=== PATIENT | female | born 1930 | race Caucasian/White ===

== ENCOUNTER 2016-10-13 14:25 | Emergency (ER) | payer MEDICARE, OTHER ==
[~2016-10-13] VITALS: Ht 154.9 cm; Wt 59.9 kg
[~2016-10-13 14:25] MED LIST: ASPI81TA2 PO; CALC-20 PO; CARV3.12 PO; CYAN1TAB43 PO; EZET10TA PO; FURO-144 PO; LOSA25TA13 PO; OMEG1CAP PO; OMEG300C3 PO; POTA10CA43 PO; POTA20TA83 PO; SIMV10TA2 PO; SPIR25TA PO; VIT1CAPS9 PO; [UNRECOGNIZED DRUG - CODE] SL
--- NOTE | 2016-10-13 15:10 | NUR ---
PT BIB FAMILY FOR COUGH SINCE YESTERDAY AND WEAKNESS. PT AAOX3. NAD NOTED. KAYLEIGH. AT FOR EVAL. SAFETY AND COMFORT MEASURES PROVIDED. WILL MONITOR.
[2016-10-13 15:27] LABS: BASOPHILS % (AUTO) 0.5 % (0.0-2.0); EOSINOPHILS % (AUTO) 0.7 % (0.0-6.0); HEMATOCRIT 38 % (33-45); HEMOGLOBIN 12.8 g/dL (11.5-14.8); LYMPHOCYTES # (AUTO) 1.1 /CMM (0.8-4.8); LYMPHOCYTES % (AUTO) 17.7 % (20.0-44.0); MEAN CORPUSCULAR HEMOGLOBIN 33 PG (26.0-33.0); MEAN CORPUSCULAR HGB CONC 34 g/dl (31.0-36.0); MEAN CORPUSCULAR VOLUME 97 fL (82-100); MONOCYTES # (AUTO) 0.5 /CMM (0.1-1.30); MONOCYTES % (AUTO) 7.7 % (2.0-12.0); NEUTROPHILS # (AUTO) 4.6 /CMM (1.8-8.9); NEUTROPHILS % (AUTO) 73.4 % (43.0-81.0); PLATELET COUNT (AUTO) 110 /CMM (150-450); RDW COEFFICIENT OF VARIATION 12.1 (11.5-15.0); RED BLOOD CELL COUNT(AUTO) 3.95 MIL/uL (4.0-5.2); WHITE BLOOD COUNT (AUTO) 6.2 K/uL (4.3-11.0)
--- NOTE | 2016-10-13 15:30 | NUR ---
IV ACCESS STARTED. BLOOD DRAWN FOR LABS, SENT.
[2016-10-13 15:38] LABS: CALCIUM, SERUM 9.3 mg/dL (8.5-10.1); CARBON DIOXIDE 31 mmol/L (21-32); CHLORIDE 106 mmol/L (98-107); CREATININE 0.7 mg/dL (0.6-1.3); GLUCOSE 94 mg/dL (74-106); POTASSIUM 4.6 mmol/L (3.5-5.1); SODIUM SERUM 140 mmol/L (136-145); UREA NITROGEN, BLOOD 12 mg/dL (7-18)
[2016-10-13 15:43] LABS: INR 2.39 (0.87-1.13)
[2016-10-13 15:46] LABS: TROPONIN I < 0.017 ng/mL (0.00-0.056)
[2016-10-13 15:51] LABS: B-TYPE NATRIURETIC PEPTIDE 832 PG/ML (0-125)
--- NOTE | 2016-10-13 16:30 | NUR ---
XRAY DONE AT BS.
--- NOTE | 2016-10-13 17:23 | NUR ---
IV removed. Catheter intact and site benign. Pressure and 4x4 applied to site. No bleeding noted.
--- NOTE | 2016-10-13 17:23 | NUR ---
Patient discharged to home in stable condition. Written and verbal after care instructions given. Patient verbalizes understanding of instruction. Pt ambulatory with a steady gait.
[2016-10-13 17:25] VITALS: BP 149/81
== END 2016-10-13 17:25 | disposition home or self-care (01) ==
LOC: ER 14:27
DX: R05 Cough (principal); R09.89 Other specified symptoms and signs involving the circulatory and respiratory systems; M19.90 Unspecified osteoarthritis, unspecified site; Z88.6 Allergy status to analgesic agent
CPT/HCPCS: 36415; 71010; 80048; 83880; 84484; 85025; 85730; 87804; 93005; 99285; A4606 ×2; 87400; Z7610

== ENCOUNTER 2017-07-16 12:57 | Inpatient (IN) | payer MEDICARE, OTHER ==
[~2017-07-16] VITALS: Ht 160 cm; Wt 56.5 kg
[~2017-07-16 12:57] MED LIST changes: +ASPI-1169 PO; -ASPI81TA2 PO; -EZET10TA PO; +EZET10TA14 PO
--- NOTE | 2017-07-16 13:10 | NUR ---
BB DAUGHTER FOR COUGH X SATURDAY, "CHEST HURTS WHEN COUGHING". PATIENT IS A/OX 4. BREATHING EVEN AND UNLABORED. NO SOB. VITALS STABLE. SAFETY AND COMFORT MEASURES IN PLACE. AWAITING MD ORDERS.
[2017-07-16 13:36] LABS: BASOPHILS % (AUTO) 0.4 % (0.0-2.0); EOSINOPHILS % (AUTO) 0.1 % (0.0-6.0); HEMATOCRIT 36 % (33-45); HEMOGLOBIN 12.4 g/dL (11.5-14.8); LYMPHOCYTES # (AUTO) 0.8 /CMM (0.8-4.8); LYMPHOCYTES % (AUTO) 14.5 % (20.0-44.0); MEAN CORPUSCULAR HEMOGLOBIN 32 PG (26.0-33.0); MEAN CORPUSCULAR HGB CONC 34 g/dl (31.0-36.0); MEAN CORPUSCULAR VOLUME 95 fL (82-100); MONOCYTES % (AUTO) 17.1 % (2.0-12.0); NEUTROPHILS # (AUTO) 3.9 /CMM (1.8-8.9); NEUTROPHILS % (AUTO) 67.9 % (43.0-81.0); PLATELET COUNT (AUTO) 116 /CMM (150-450); RDW COEFFICIENT OF VARIATION 13.7 (11.5-15.0); RED BLOOD CELL COUNT(AUTO) 3.82 MIL/uL (4.0-5.2); WHITE BLOOD COUNT (AUTO) 5.7 K/uL (4.3-11.0)
[2017-07-16 13:49] LABS: CALCIUM, SERUM 9.4 mg/dL (8.5-10.1); CARBON DIOXIDE 31 mmol/L (21-32); CHLORIDE 103 mmol/L (98-107); CREATININE 0.8 mg/dL (0.6-1.3); GLUCOSE 106 mg/dL (74-106); POTASSIUM 4.2 mmol/L (3.5-5.1); SODIUM SERUM 139 mmol/L (136-145); UREA NITROGEN, BLOOD 16 mg/dL (7-18)
[2017-07-16 13:57] LABS: TROPONIN I < 0.017 ng/mL (0.00-0.056)
--- NOTE | 2017-07-16 14:19 | NUR ---
CALLED RT FOR BREATHING TREATMENT
[2017-07-16] MEDS ORDERED: methylPREDNISolone SOD SUCC 125 MG/2ML VIAL ONE (14:24)
[2017-07-16] MEDS ORDERED: IPRATROPIUM NEB FS 0.5 MG/2.5 ML AMPUL.NEB NEB ONE ×2 (14:30→15:30)
[2017-07-16] MEDS ORDERED: methylPREDNISolone SOD SUCC 125 MG/2ML VIAL IV ONE (14:30)
[2017-07-16] MEDS ORDERED: ALBUTEROL FS 2.5 MG/3 ML VIAL.NEB NEB ONE ×2 (14:30→15:30)
--- NOTE | 2017-07-16 14:30 | NUR ---
NEW IV STARTED ON RFA, 20 G. PATIENT MEDICATED PER MD ORDERS.
[2017-07-16] MEDS ORDERED: ALBUTEROL FS 2.5 MG/3 ML VIAL.NEB ONE ×2 (14:39→15:38)
[2017-07-16] MEDS ORDERED: IPRATROPIUM NEB FS 0.5 MG/2.5 ML AMPUL.NEB ONE ×2 (14:39→15:38)
[2017-07-16 14:46] LABS: ALBUMIN 3.3 g/dL (3.4-5.0); BILIRUBIN,DIRECT 0.1 mg/dL (0.0-0.2); BILIRUBIN,TOTAL 0.3 mg/dL (0.2-1.0); TOTAL PROTEIN, SERUM 7.1 g/dL (6.4-8.2)
[2017-07-16] MEDS ORDERED: ATOR40TA PO (15:43)
[2017-07-16] MEDS ORDERED: CARV25TA2 PO (15:43)
[2017-07-16] MEDS ORDERED: CYAN10009 PO (15:43)
[2017-07-16] MEDS ORDERED: OMEG1CAP46 PO (15:43)
[2017-07-16] MEDS ORDERED: WARF5TAB6 PO (15:43)
[2017-07-16] MEDS ORDERED: LOSA100T15 PO (15:43)
[2017-07-16] MEDS ORDERED: VIT1CAPS9 PO (15:43)
[2017-07-16] MEDS ORDERED: FOLI0.4T2 PO (15:43)
[2017-07-16] MEDS ORDERED: FURO20TA4 PO (15:43)
[2017-07-16] MEDS ORDERED: OSELTAMIVIR PHOSPHATE 75 MG CAPSULE ONE (15:57)
[2017-07-16] MEDS ORDERED: OSELTAMIVIR PHOSPHATE 75 MG CAPSULE PO ONE (16:00)
--- NOTE | 2017-07-16 16:11 | NUR ---
EPIC PAGED, PURIFICATION DIRECTOR
--- NOTE | 2017-07-16 16:13 | NUR ---
CALLED NURSING SUP. FOR MS BED
--- NOTE | 2017-07-16 16:39 | NUR ---
[facility] REPAGED
--- NOTE | 2017-07-16 16:48 | NUR ---
MS 329 AT 6PM
--- NOTE | 2017-07-16 17:01 | NUR ---
REPORT GIVEN TO RNJAYESH FOR SIMIN UPON ADMISSION. BED NOT AVAILABLE YET, WILL MOVE PATIENT ONCE ROOM OPENS UP.
[2017-07-16] MEDS ORDERED: IV NS 0.9% 1,000 ML IV PRN ×2 (17:21→18:15)
[2017-07-16] MEDS ORDERED: LEVOFLOXACIN 500 MG /D5W 100ML 500 MG in PREMIX 1 EA IV SCH (17:30)
[2017-07-16] MEDS ORDERED: WARFARIN SODIUM 5 MG TABLET PO SCH ×2 (17:30)
[2017-07-16] MEDS ORDERED: ONDANSETRON HCL/PF 4 MG/2 ML VIAL IVP PRN ×2 (17:30→18:15)
[2017-07-16] MEDS ORDERED: HYDROCODONE/APAP 5/325MG 1 EACH TABLET PO PRN ×2 (17:30→18:15)
[2017-07-16] MEDS ORDERED: ZOLPIDEM TARTRATE 5 MG TABLET PO PRN ×2 (17:30→18:15)
[2017-07-16] MEDS ORDERED: MAGNESIUM HYDROXIDE 30 ML UDC PO PRN ×2 (17:30→18:15)
[2017-07-16] MEDS ORDERED: ACETAMINOPHEN 325 MG TABLET PO PRN ×2 (17:30→18:15)
[2017-07-16] MEDS ORDERED: Z GUARD REMEDY 2 OZ OINT TP PRN ×2 (17:30→18:15)
[2017-07-16] MEDS ORDERED: GUAIFENESIN/D-METHORPHAN HB 5 ML UDC PO PRN ×2 (17:30→18:15)
[2017-07-16] MEDS ORDERED: ENOXAPARIN SODIUM 40 MG/0.4 ML DISP.SYRIN SQ SCH (17:30)
[2017-07-16] MEDS ORDERED: MAG HYDROX/AL HYDROX/SIMETH 30 ML UDC PO PRN ×2 (17:30→18:15)
--- NOTE | 2017-07-16 18:15 | NUR ---
PATIENT TRANSPORTED TO [facility] VIA STRETCHER WITH EMT. RN, JAYESH TO PROVIDE SIMIN.
[2017-07-16] MEDS ORDERED: ALBUTEROL FS 2.5 MG/3 ML VIAL.NEB NEB SCH (19:30)
--- NOTE | 2017-07-16 19:30 | NUR ---
MS RN NOTE RECEIVED PATIENT AWAKE ALERT AND ORIENTED X3. NO SOB AT THIS TIME. PATIENT DENIES ANY PAIN OR DISCOMFORT. IV SITE INTACT, WITH FLUIDS RUNNING ORDERED. SKIN CHECKED. NO BREAKDOWN OR BRUISING NOTED. ORIENTED PATIENT TO ROOM AND TO UNIT. ALL BELONGINGS CHECKED AND ACCOUNTED FOR. BED LOCKED AND IN LOWEST POSITION. SIDE RAILS UP, CALL LIGHT WITHIN REACH. WILL CONTINUE TO MONITOR.
[2017-07-16 20:00] VITALS: BP 157/63
[2017-07-16] MEDS: ENOXAPARIN SODIUM 40 MG/0.4 ML DISP.SYRIN SQ SCH ×2 (20:00→21:00)
[2017-07-16] MEDS ORDERED: LEVOFLOXACIN 500 MG /D5W 100ML 500 MG in PREMIX 1 EA IV ONE (20:00)
[2017-07-16] MEDS: ALBUTEROL FS 2.5 MG/3 ML VIAL.NEB NEB SCH (20:10)
[2017-07-16] MEDS ORDERED: ATORVASTATIN 40 MG TABLET PO SCH (22:00)
[2017-07-16] MEDS: ATORVASTATIN 40 MG TABLET PO SCH (22:00)
--- NOTE | 2017-07-16 22:00 | NUR ---
MS RN NOTE HELD LOVENOX. LOW PLATELETS.
--- NOTE | 2017-07-17 07:34 | NUR ---
RN OPENING NOTES RECEIVED PATIENT IN BED RESTING, RESPONSIVE. A/OX4. NO ACUTE DISTRESS, NO SOB NOTED. NO S/S OF PAIN OR DISCOMFORT. IV SITE INTACT AND PATENT. KEPT PATIENT SAFE AND COMFORTABLE. BED IN LOCKED, LOW POSITION, SIDERAILS UP X2, CALL LIGHT IN REACH. WILL CONTINUE TO MONITOR ACCORDINGLY.
[2017-07-17 08:00] VITALS: BP 149/71
[2017-07-17] MEDS ORDERED: ASPIRIN 81 MG TAB.CHEW PO SCH (09:00)
[2017-07-17] MEDS ORDERED: OSELTAMIVIR PHOSPHATE 75 MG CAPSULE PO SCH (09:00)
[2017-07-17] MEDS ORDERED: FUROSEMIDE 20 MG TABLET PO SCH (09:00)
[2017-07-17] MEDS ORDERED: SPIRONOLACTONE 25 MG TABLET PO SCH (09:00)
[2017-07-17] MEDS: ASPIRIN 81 MG TAB.CHEW PO SCH (09:11)
[2017-07-17] MEDS: SPIRONOLACTONE 25 MG TABLET PO SCH (09:12)
[2017-07-17] MEDS: OSELTAMIVIR PHOSPHATE 75 MG CAPSULE PO SCH ×2 (09:12→16:47)
[2017-07-17] MEDS: FUROSEMIDE 20 MG TABLET PO SCH (09:12)
[2017-07-17] MEDS: ALBUTEROL FS 2.5 MG/3 ML VIAL.NEB NEB SCH ×4 (09:12→20:12)
[2017-07-17] MEDS: FOLIC ACID 1 MG TABLET PO SCH (10:08)
[2017-07-17] MEDS: LOSARTAN POTASSIUM 50 MG TABLET PO SCH (10:09)
[2017-07-17] MEDS: CARVEDILOL 12.5 MG TABLET PO SCH ×2 (10:10→21:15)
[2017-07-17 13:52] LABS: INR 3.35 (0.87-1.13); PROTHROMBIN TIME 35.3 SECS (9.5-12.7)
[2017-07-17 16:00] VITALS: BP 147/70
--- NOTE | 2017-07-17 16:00 | NUR ---
RN NOTES DR PARIKH AT BEDSIDE TALKING TO PATIENT AND FAMILY. RECEIVED ORDER TO DECREASE THE IVF RATE TO 50ML/HR.
[2017-07-17] MEDS: WARFARIN SODIUM 5 MG TABLET PO SCH (16:50)
--- NOTE | 2017-07-17 19:16 | NUR ---
RN CLOSING NOTES PATIENT RESTING IN BED. NO SIGNIFICANT CHANGE IN PATIENT'S CONDITION. NO ACUTE DISTRESS, NO SOB NOTED. NO S/S OF PAIN OR DISCOMFORT. ALL NEEDS ATTENDED AND PROVIDED. BED IN LOW, LOCKED POSITION, HOB ELEVATED, SIDERAILS UPX2, CALL LIGHT WITHIN REACH. ENDORSED TO BULB ASSEMBLER RN FOR SIMIN.
--- NOTE | 2017-07-17 19:30 | NUR ---
RN NOTES RECEIVED PT. AWAKE ON BED. A/OX4, IV FLUID NS RUNNING @ 50ML/HR, DENIES PAIN, NO SOB, CALL LIGHT WITHIN REACH, SIDERAILSUPX2 CONTINUE TO MONITOR
[2017-07-17 20:00] VITALS: BP_SYST 119; BP_SYST 120; BP_DIAS 56; BP_DIAS 60
[2017-07-17] MEDS: ATORVASTATIN 40 MG TABLET PO SCH (21:14)
--- NOTE | 2017-07-18 06:51 | NUR ---
RN NOTES AWAKE, DENIES PAIN, NO SOB, IV LINE PATENT , NO REDNESS OR SWOLLEN, CALL LIGHT WITHIN REACH, MORNING CARE RENDERED, SIDERAILSUPX2 PT. NEEDS ATTENDED
--- NOTE | 2017-07-18 07:30 | NUR ---
MS/RN OPENING NOTE PATIENT RECEIVED IN BED AWAKE. ALERT AND ORIENTED X3. OXYGEN DELIVERING AT 2L/MIN VIA NC. RESPIRATION REGULAR AND UNLABORED. DENIES SOB, DENIES PAIN AT THIS TIME. IN NO APPARENT DISTRESS. RFA g20 PATENT AND IV INFUSING WITH NO S/SX INFILTRATION. BED LOCKED AND LOW. SIDE RAIL X2 UP. CALL LIGHT WITHIN REACH. WILL CONTINUE TO MONITOR.
[2017-07-18 08:00] VITALS: BP 143/66
[2017-07-18] MEDS: FOLIC ACID 1 MG TABLET PO SCH (08:22)
[2017-07-18] MEDS: ASPIRIN 81 MG TAB.CHEW PO SCH (08:22)
[2017-07-18] MEDS: FUROSEMIDE 20 MG TABLET PO SCH (08:23)
[2017-07-18] MEDS: SPIRONOLACTONE 25 MG TABLET PO SCH (08:23)
[2017-07-18] MEDS: OSELTAMIVIR PHOSPHATE 75 MG CAPSULE PO SCH ×2 (08:23→17:25)
[2017-07-18] MEDS: LOSARTAN POTASSIUM 50 MG TABLET PO SCH (08:24)
[2017-07-18] MEDS: CARVEDILOL 12.5 MG TABLET PO SCH (08:24)
[2017-07-18] MEDS: ALBUTEROL FS 2.5 MG/3 ML VIAL.NEB NEB SCH ×3 (08:34→15:00)
[2017-07-18 08:40] LABS: BASOPHILS % (AUTO) 0.3 % (0.0-2.0); HEMATOCRIT 34 % (33-45); HEMOGLOBIN 11.6 g/dL (11.5-14.8); LYMPHOCYTES # (AUTO) 1.1 /CMM (0.8-4.8); LYMPHOCYTES % (AUTO) 22.9 % (20.0-44.0); MEAN CORPUSCULAR HEMOGLOBIN 33 PG (26.0-33.0); MEAN CORPUSCULAR HGB CONC 34 g/dl (31.0-36.0); MEAN CORPUSCULAR VOLUME 97 fL (82-100); MONOCYTES # (AUTO) 0.5 /CMM (0.1-1.30); MONOCYTES % (AUTO) 10.5 % (2.0-12.0); NEUTROPHILS # (AUTO) 3.2 /CMM (1.8-8.9); NEUTROPHILS % (AUTO) 66.3 % (43.0-81.0); PLATELET COUNT (AUTO) 98 /CMM (150-450); RDW COEFFICIENT OF VARIATION 14.6 (11.5-15.0); RED BLOOD CELL COUNT(AUTO) 3.51 MIL/uL (4.0-5.2); WHITE BLOOD COUNT (AUTO) 4.9 K/uL (4.3-11.0)
--- NOTE | 2017-07-18 08:53 | NUR ---
MS/RN MEDS GIVEN MORNING DUE MEDICATIONS GIVEN ORDERED. NO ASE NOTED.
[2017-07-18 08:56] LABS: CALCIUM, SERUM 8.3 mg/dL (8.5-10.1); CARBON DIOXIDE 27 mmol/L (21-32); CHLORIDE 108 mmol/L (98-107); CREATININE 0.7 mg/dL (0.6-1.3); GLUCOSE 92 mg/dL (74-106); PHOSPHORUS 2.8 mg/dL (2.5-4.9); POTASSIUM 3.9 mmol/L (3.5-5.1); SODIUM SERUM 141 mmol/L (136-145); UREA NITROGEN, BLOOD 15 mg/dL (7-18)
[2017-07-18] MEDS ORDERED: OSEL75CA PO (12:51)
[2017-07-18 16:00] VITALS: BP 129/69
[2017-07-18] MEDS: WARFARIN SODIUM 5 MG TABLET PO SCH (17:27)
[2017-07-20] MEDS ORDERED: WARFARIN SODIUM 2.5 MG TABLET PO SCH (17:00)
== END 2017-07-18 18:00 | disposition home or self-care (01) | DRG 194 ==
LOC: ER 12:59 → MED 19:26
PROVIDERS: ADMIT Internal Medicine; ATTEND Internal Medicine
DX: J10.1 Influenza due to other identified influenza virus with other respiratory manifestations (principal); E44.1 Mild protein-calorie malnutrition; E78.5 Hyperlipidemia, unspecified; I70.0 Atherosclerosis of aorta; Z79.01 Long term (current) use of anticoagulants; K21.9 Gastro-esophageal reflux disease without esophagitis; Z79.82 Long term (current) use of aspirin; Z79.899 Other long term (current) drug therapy; Z95.2 Presence of prosthetic heart valve; Z88.5 Allergy status to narcotic agent; Z95.0 Presence of cardiac pacemaker; I10 Essential (primary) hypertension
CPT/HCPCS: 36415; 71010-TC; 80048-TC; 80076-TC; 83605-TC; 83735-TC; 84100-TC; 84484-TC; 85025-TC; 85610-TC; 87040-TC; 87081-TC; 87400; A4216; A4606; J1956; J2930; J7030; Z7610

== ENCOUNTER 2019-04-26 03:49 | Emergency (ER) | payer MEDICARE, MEDICAID ==
[~2019-04-26] VITALS: Ht 160 cm; Wt 64.0 kg
[~2019-04-26 03:49] MED LIST changes: +ATOR40TA PO; +CARV25TA2 PO; -CARV3.12 PO; +CYAN-51 PO; -CYAN1TAB43 PO; -EZET10TA14 PO; +FOLI0.4T2 PO; -FURO-144 PO; +FURO20TA4 PO; +LOSA100T31 PO; -LOSA25TA13 PO; -OMEG1CAP PO; +OMEG1CAP46 PO; -OMEG300C3 PO; +OSEL75CA PO; -POTA10CA43 PO; -POTA20TA83 PO; -SIMV10TA2 PO; +WARF-58 PO; -[UNRECOGNIZED DRUG - CODE] SL
--- NOTE | 2019-04-26 04:04 | NUR ---
BIB BY AMBULANCE FROM [facility]. PATIENT HAD FALL IN THE BATHROOM. PER PATIENT SHE SLIPPED AND LANDED ON HER L SIDE. INITIAL ASSESSMENT DONE. PUNCTURE WOUND AND CONTUSION NOTED ABOVE THE L EYE, BRUISING ON THE L LOWE LEG; AND DEFORMITY OF L HAND/FOREARM. ON PAIN 11/28. A/O X3, -N/V. CLEANED THE PATIENT, PUT ON HOSPITAL GOWN.
--- NOTE | 2019-04-26 04:06 | NUR ---
BUSINESS INTELLIGENCE ANALYST AT BEDSIDE FOR X-RAYS ORDERED.
--- NOTE | 2019-04-26 04:06 | NUR ---
RADIOLOGY AT BEDSIDE
--- NOTE | 2019-04-26 04:07 | NUR ---
TO CT ON JAMEEL
--- NOTE | 2019-04-26 04:07 | NUR ---
BROUGHT TO RADIOLOGY FOR CT SCAN ORDERED.
[2019-04-26] MEDS ORDERED: FENTANYL PF 100MCG/2ML AMPUL ONE (04:11)
--- NOTE | 2019-04-26 04:21 | NUR ---
BACK TO ER 10 FROM RADIOLOGY.
--- NOTE | 2019-04-26 04:25 | NUR ---
INSERTED PERIPHERAL IV LINE RFA G#20, GOOD BLOOD RETURN NOTED AFTER 1 ATTEMPT. CONVERTED INTO SL.
[2019-04-26] MEDS ORDERED: FENTANYL PF 100MCG/2ML AMPUL IV ONE (04:30)
[2019-04-26] MEDS ORDERED: TDAP [DIPH/PERTUSSIS/TET] 0.5 ML VIAL IM ONE ×2 (05:00→05:06)
--- NOTE | 2019-04-26 05:10 | NUR ---
MD AT BEDSIDE TO EXPLAIN TO PATIENT AND FAMILY THE POC.
--- NOTE | 2019-04-26 05:26 | NUR ---
CLOSE REDUCTION DONE BY DR. SCHULZ, WITH LOCAL ANETHESIA. APPLIED FIBERGLASS VOLAR SPLINT TO L HAND AND FOREARM. L FINGERS ENSURED SENSATION AND CIRCULATION. PATIENT TOLERATED THE PROCEDURE WELL.
--- NOTE | 2019-04-26 05:29 | NUR ---
WATER MECHANIC AT BEDSIDE FOR L WRIST X-RAY.
--- NOTE | 2019-04-26 06:19 | NUR ---
PT OK TO DISCHARGE PER DR SCHULZ. Patient discharged to home in stable condition. Written and verbal after care instructions given. Patient verbalizes understanding of instruction.Patient is awake and alert to self, day, and place.
[2019-04-26 06:20] VITALS: BP 124/69
== END 2019-04-26 06:20 | disposition home or self-care (01) ==
LOC: ER 03:50
DX: S52.592A Other fractures of lower end of left radius, initial encounter for closed fracture (principal); S01.81XA Laceration without foreign body of other part of head, initial encounter; I10 Essential (primary) hypertension; Z95.0 Presence of cardiac pacemaker; Z95.2 Presence of prosthetic heart valve; Z88.5 Allergy status to narcotic agent; Z79.01 Long term (current) use of anticoagulants; Z79.82 Long term (current) use of aspirin; W01.0XXA Fall on same level from slipping, tripping and stumbling without subsequent striking against object, initial encounter; Y93.01 Activity, walking, marching and hiking; Y92.091 Bathroom in other non-institutional residence as the place of occurrence of the external cause; Y99.8 Other external cause status
CPT/HCPCS: 25605; 70450; 73090; 73110 ×2; 90471; 90715; 96374; 99284; A6403; J3010

== ENCOUNTER 2019-06-27 14:25 | Emergency (ER) | payer MEDICARE, MEDICAID ==
[~2019-06-27] VITALS: Ht 162.6 cm; Wt 54.4 kg
[2019-06-27 14:38] VITALS: BP 142/78
== END 2019-06-27 15:56 | disposition home or self-care (01) ==
LOC: ER 14:27
DX: S00.81XA Abrasion of other part of head, initial encounter (principal); I10 Essential (primary) hypertension; G31.1 Senile degeneration of brain, not elsewhere classified; R22.0 Localized swelling, mass and lump, head; Z95.2 Presence of prosthetic heart valve; Z95.0 Presence of cardiac pacemaker; Z88.5 Allergy status to narcotic agent; Z79.01 Long term (current) use of anticoagulants; Z79.82 Long term (current) use of aspirin; Z79.899 Other long term (current) drug therapy; W18.09XA Striking against other object with subsequent fall, initial encounter; Y93.89 Activity, other specified; Y92.89 Other specified places as the place of occurrence of the external cause; Y99.8 Other external cause status
CPT/HCPCS: 70450; 99284; A6403